=== PATIENT | female | born 1965 | race African-American/Black ===

== ENCOUNTER → 2017-03-02 | Outpatient (CLI) | payer OTHER ==
[~2017-03-02] MED LIST: CYCLOBENZAPRINE5 MG PO; GLYBURIDE 2.52.5 M1 PO; IBUPROFEN 600600 M1 PO; METFORMIN HCL500 MG PO; NORCO 5-325 TA1 EACH PO; ZOCOR 10 MG TAB10 MG PO; [UNRECOGNIZED DRUG - REMARK]
== END ==
LOC: CAT 15:19
DX: R91.1 Solitary pulmonary nodule (principal)

== ENCOUNTER 2018-01-19 11:03 | Emergency (ER) | payer OTHER ==
[~2018-01-19] VITALS: Ht 170.2 cm; Wt 56.7 kg
[2018-01-19] MEDS ORDERED: IBUPROFEN 600600 M1 PO (11:42)
[2018-01-19] MEDS ORDERED: TESSALON PERLE100 MG PO (11:42)
== END 2018-01-19 11:57 | disposition home or self-care (01) ==
LOC: ER 11:03
DX: J06.9 Acute upper respiratory infection, unspecified (principal); E11.9 Type 2 diabetes mellitus without complications; Z88.2 Allergy status to sulfonamides

== ENCOUNTER → 2018-08-27 | Outpatient (CLI) | payer OTHER, SELFPAY ==
[~2018-08-27] MED LIST changes: +TESSALON PERLE100 MG PO
== END ==
LOC: RAD 16:28
DX: M48.56XA Collapsed vertebra, not elsewhere classified, lumbar region, initial encounter for fracture (principal); M54.42 Lumbago with sciatica, left side

== ENCOUNTER → 2018-08-28 | Outpatient (CLI) | payer OTHER, SELFPAY | LOC: RAD 14:16 | DX: Z12.31 Encounter for screening mammogram for malignant neoplasm of breast (principal) ==

== ENCOUNTER → 2019-01-10 | Outpatient (CLI) | payer OTHER ==
[~2019-01-10] MED LIST changes: +CENTRUM SILVER1 EAC4 PO
== END ==
LOC: RAD 13:36
DX: M79.641 Pain in right hand (principal); M79.642 Pain in left hand

== ENCOUNTER → 2019-01-24 | Outpatient (CLI) | payer OTHER ==
[~2019-01-24] VITALS: Ht 170.2 cm; Wt 94.8 kg
[~2019-01-24] MED LIST changes: +HYDROXYCHLOROQ200 M1 PO; +ISOSORBIDE MONO30 M1 PO; +NAPROSYN500 MG PO
[2019-01-24 11:12] LABS: HEMATOCRIT 42.4 % (37.0-47.0); HEMOGLOBIN 13.3 gm/dL (12.0-15.0); MCH 23.6 pg (26.0-34.0); MCHC 31.4 g/dL (28.0-37.0); MCV 75.2 fL (80.0-100.0); RBC 5.64 mil/uL (4.20-5.00); RDW 14.7 % (10.5-14.5); WBC 6.6 thou/uL (4.0-11.0)
[2019-01-24 11:16] VITALS: BP 122/64
[2019-01-24 11:22] LABS: CALCIUM 9.6 mg/dL (8.5-10.1); CREATININE 0.8 mg/dL (0.6-1.0); POTASSIUM 3.7 mmol/L (3.5-5.1)
--- NOTE | 2019-02-04 11:19 | CATHLAB ---
[facility] [address] [place] [address] INVASIVE PROCEDURE REPORT Name: EDU CARRENO Room #: REG [facility]#: [id number] ������������� Admission: 01/24/19 ������������� Attend Phys: Behzad Bateman Discharge: ��� ������������� ��� Date of : 69 Date of Service: 02/04/19 1118 �� Report #: [id number] �������� ��������������������������������������������[id number] THIS REPORT FOR: //name// APPROVED REPORT Study performed: 01/24/2019 12:08:56 Patient Details Patient Status: Out-Patient Room #: The patient is a 53 year-old female Event Personnel Behzad Atkinson Manager Of Health, Oswaldo Washington RN RN, Humza Camops RN RN, Neida Rush RTR, Terry Copeland Amber Monitor Procedures Performed Art Access - R femoral artery* 90030 Initial Mod Sed Same Phys/QHP Gr5y 548700 Left Heart Cath w/or w/o Coronaries [id number] [facility] Hemostasis with Manual pressure, supervision of conscious sedation Indication Positive stress test, Chest pain Procedure Narrative The patient was brought electively to the Cardiac Catheterization Laboratory and was prepped and draped in a sterile manner. The Right Groin^ was infiltrated with 1% Lidocaine subcutaneous anesthesia. A PINNACLE 4FR Sheath #[id number] sheath was inserted into the RFA^. Coronary angiography was performed using coronary diagnostic catheters. The right coronary system was accessed and visualized with a JR 4 catheter. The left coronary system was accessed and visualized with a JL 4 catheter. The left ventricle was accessed and visualized with a JR 4 catheter. Left ventricular/Aortic Valve gradient assessed via catheter pullback. Hemostasis was obtained with manual pressure following sheath removal without any complications. The patient tolerated the procedure well and there were no complications associated with the procedure. There was no hematoma. Intraoperative Conscious Sedation Sedation start time: 12:29 Case end Time: 12:54 Versed 3 mg [facility] [place] [address] INVASIVE PROCEDURE REPORT Name: EDU CARRENO Room #: REG [facility]#: [id number] ������������� Admission: 01/24/19 ������������� Attend Phys: Behzad Bateman Discharge: ��� ������������� ��� Date of : 69 Date of Service: 02/04/19 1118 �� Report #: [id number] �������� ��������������������������������������������[id number] Fluoro Time: 1.35 minutes Dose: DAP 2223.00 cGycm2 325 mGy Contrast Type and Amount: Omnipaque 50 ml Coronary Angiography The patient's coronary anatomy is right dominant. Diagnostic Cath Left Main Large-caliber vessel bifurcating left anterior descending left circumflex free of high-grade disease LAD Moderate to small caliber rapidly tapering vessel. Type II. Coursing the anterior interventricular sulcus giving rise to septal and diagonal branches which are small in size but all free of high-grade disease. Diagonal 1 More caliber nonobstructed vessel Circumflex Moderate caliber vessel which proceeds give rise to a moderate caliber bifurcating marginal branch along the lateral aspect of the heart. Then continues and terminates as a small posterior wall branches with only luminal irregularities OM1 Moderate caliber vessel without significant high-grade lesions or luminal irregularities noted Right Coronary Moderate caliber vessel normal origin. Coursing the AV groove giving rise to 2 marginal branches all of which are free of high-grade disease. And continues posterior to the crux of the heart will race small caliber posterior descending and posterior circulation arises. R PDA small caliber vessel with significant stenosis present Left Ventriculography Left Ventriculography was not performed. Hemodynamics The aortic pressure is 148/85 mmHg with a mean of 70 mmHg. The left ventricular pressure is 142/6 mmHg with a mean of mmHg. The left ventricular end diastolic pressure is 24 mmHg. Conclusion 1. Essentially normal coronary arteries 2. Normal hemodynamics Recommendations Cardiac Risk Reduction Program ��������������������������������������������� <ELECTRONICALLY SIGNED> ���������������������������������������� By: Behzad Atkinson MD ��������������������������������������������� 02/04/19 1118 1118 1118 Behzad Atkinson MD /INF
== END | disposition home or self-care (01) ==
LOC: CATH 06:24
PROVIDERS: Internal Medicine
DX: R94.39 Abnormal result of other cardiovascular function study (principal); R07.9 Chest pain, unspecified; E11.9 Type 2 diabetes mellitus without complications; E78.5 Hyperlipidemia, unspecified; Z90.49 Acquired absence of other specified parts of digestive tract; Z98.890 Other specified postprocedural states; Z88.2 Allergy status to sulfonamides; Z79.899 Other long term (current) drug therapy

== ENCOUNTER → 2019-09-02 | Outpatient (CLI) | payer OTHER | LOC: RAD 09:29 | DX: Z12.31 Encounter for screening mammogram for malignant neoplasm of breast (principal) ==

== ENCOUNTER → 2019-09-23 | Outpatient (CLI) | payer OTHER ==
[~2019-09-23] VITALS: Ht 170.2 cm; Wt 98.4 kg
[~2019-09-23] MED LIST changes: +JANUVIA100 MG PO
--- NOTE | 2019-09-24 16:06 | PATH ---
[facility] [address] [place] [address] PATHOLOGY RPT PROCEDURE Name: EMELI CARRENO Room #: REG [facility]..#: [id number] Admission: 09/23/19 Date of : 69 Discharge: Report #: [id number] Path Case #: [id number] [facility] Accession Number: [id number] . 01 Material submitted: . colon - POLYP AT TRANSVERSE COLON. Modifiers: transverse . 01 Clinical history: . Pre-OP DX: Screening Post-OP DX: Colon polyps . 02 Diagnosis: Polyp, at transverse colon, endoscopic biopsy: - Tubular adenoma. - Negative for high-grade dysplasia. (IUV:problem manager; 09/24/2019) MBR 09/24/2019 1212 Local . 02 Electronically signed: . Brittani Pete MD, Pathologist NPI- [id number] . 01 Gross description: . Received in formalin labeled "Chambers, Emeli, polyp at transverse colon," is a single segment of nobles soft tissue measuring 0.5 cm in maximum dimension. The specimen is entirely submitted in cassette A1. (TSD; 09/23/2019) TOB/TOB 09/23/2019 2303 Local . 02 Pathologist provided ICD-10: D12.3, Z12.11 . 02 CPT . 344954 Specimen Comment: A courtesy copy of this report has been sent to [phone] Specimen Comment: [phone] Specimen Comment: Report sent to and Performed at: [address], [place], [place] [id number] MD Jayden Lamb MD Phone: [phone] Performed at: [address] [id number] MD Brittani Pete MD Phone: [phone]
== END | disposition home or self-care (01) ==
LOC: GI 06:56
DX: Z12.11 Encounter for screening for malignant neoplasm of colon (principal); D12.3 Benign neoplasm of transverse colon; K64.8 Other hemorrhoids; E78.5 Hyperlipidemia, unspecified; E11.9 Type 2 diabetes mellitus without complications; Z98.890 Other specified postprocedural states; Z79.899 Other long term (current) drug therapy; Z90.49 Acquired absence of other specified parts of digestive tract; Z88.2 Allergy status to sulfonamides
CPT/HCPCS: 62110; 62900

== ENCOUNTER → 2019-09-26 | Outpatient (CLI) | payer OTHER | LOC: CAT 09:26 | DX: J98.4 Other disorders of lung (principal); N28.1 Cyst of kidney, acquired ==

== ENCOUNTER → 2020-06-09 | Outpatient (CLI) | payer OTHER ==
[2020-06-09 14:05] LABS: ABSOLUTE NEUTROPHILS 4.5 thou/uL (1.4-8.2); BASOPHILS 0.9 % (0.0-2.0); HEMATOCRIT 43.9 % (37.0-47.0); HEMOGLOBIN 13.8 gm/dL (12.0-15.0); LYMPHOCYTES 39.9 % (24.0-44.0); MCH 23.8 pg (26.0-34.0); MCHC 31.4 g/dL (28.0-37.0); MCV 75.6 fL (80.0-100.0); MONOCYTES 4.2 % (1.0-8.0); PLATELET COUNT 323 thou/uL (150-400); RBC 5.81 mil/uL (4.20-5.00); RDW 14.9 % (10.5-14.5); WBC 8.6 thou/uL (4.0-11.0)
[2020-06-09 14:23] LABS: ALBUMIN 3.6 g/dL (3.4-5.0); ANION GAP 6 mmol/L (7-16); BUN 12 mg/dL (7-18); CALCIUM 9.6 mg/dL (8.5-10.1); CHLORIDE 101 mmol/L (98-107); CHOLESTEROL 279 mg/dL (<200); CO2 29 mmol/L (21-32); GLUCOSE 280 mg/dL (74-106); HDL CHOLESTEROL 45 mg/dL (>40); LDL CHOLESTEROL 194 mg/dL (<100); POTASSIUM 4.3 mmol/L (3.5-5.1); SGOT 14 U/L (15-37); SGPT 28 U/L (30-65); SODIUM 136 mmol/L (136-145); TC:HDL 6.2 Ratio (Not establshd); TOTAL BILIRUBIN 0.3 mg/dL (0.2-1.0); TOTAL PROTEIN 7.6 g/dL (6.4-8.2); TRIGLYCERIDE 200 mg/dL (<150); VLDL 40 mg/dL (<40)
[2020-06-10 06:06] LABS: GLYCOHEMOGLOBIN (HGB A1C) 10.1 % (4.8-5.6)
== END ==
LOC: LAB 13:45
PROVIDERS: ATTEND Nurse Practitioner
DX: E11.9 Type 2 diabetes mellitus without complications (principal); E78.00 Pure hypercholesterolemia, unspecified

== ENCOUNTER → 2020-06-22 | Outpatient (CLI) | payer OTHER | LOC: CAT 09:41 | PROVIDERS: ATTEND Nurse Practitioner | DX: K80.20 Calculus of gallbladder without cholecystitis without obstruction (principal) ==

== ENCOUNTER 2020-08-22 12:03 | Emergency (ER) | payer OTHER ==
[~2020-08-22] VITALS: Ht 170.2 cm; Wt 102.1 kg
[2020-08-22 13:07] LABS: ABSOLUTE NEUTROPHILS 6.8 thou/uL (1.4-8.2); BASOPHILS 0.5 % (0.0-2.0); EOSINOPHILS 1.2 % (0.0-3.0); HEMATOCRIT 42.9 % (37.0-47.0); HEMOGLOBIN 13.8 gm/dL (12.0-15.0); LYMPHOCYTES 18.1 % (24.0-44.0); MCH 24.2 pg (26.0-34.0); MCHC 32.1 g/dL (28.0-37.0); MCV 75.3 fL (80.0-100.0); MONOCYTES 4.1 % (1.0-8.0); PLATELET COUNT 292 thou/uL (150-400); POLYS 76.1 % (36.0-66.0); RBC 5.69 mil/uL (4.20-5.00); RDW 14.5 % (10.5-14.5); WBC 8.9 thou/uL (4.0-11.0)
[2020-08-22 13:16] LABS: ANION GAP 10 mmol/L (7-16); BUN 12 mg/dL (7-18); CALCIUM 9.1 mg/dL (8.5-10.1); CHLORIDE 102 mmol/L (98-107); CO2 27 mmol/L (21-32); GLUCOSE 288 mg/dL (74-106); POTASSIUM 4.2 mmol/L (3.5-5.1); SODIUM 139 mmol/L (136-145)
[2020-08-22 13:26] LABS: ALBUMIN 3.8 g/dL (3.4-5.0); SGOT 20 U/L (15-37); SGPT 22 U/L (30-65); TOTAL BILIRUBIN 0.4 mg/dL (0.2-1.0); TOTAL PROTEIN 8.2 g/dL (6.4-8.2); TROPONIN-I <0.06 ng/mL (<0.06)
[2020-08-22 15:10] LABS: URINE BILIRUBIN NEGATIVE (Negative); URINE BLOOD NEGATIVE (Negative); URINE CLARITY CLEAR; URINE COLOR YELLOW; URINE GLUCOSE-RANDOM* 3+ (Negative); URINE KETONES NEGATIVE (Negative); URINE LEUKOCYTES-REFLEX NEGATIVE (Negative); URINE NITRITE-REFLEX NEGATIVE (Negative); URINE PROTEIN (DIPSTICK) NEGATIVE (Negative); URINE UROBILINOGEN 0.2 E.U./dl (0.2-1.0)
[2020-08-22] MEDS ORDERED: ZOFRAN ODT4 MG DISSOLVE (15:53)
[2020-08-22] MEDS ORDERED: MECLIZINE HCL25 M1 PO (15:53)
[2020-08-22 16:24] VITALS: BP 114/74
--- NOTE | 2020-08-23 09:08 | EKG ---
[facility] [place] [address] ELECTROCARDIOGRAM REPORT Name: [facility] Room #: [facility] MAlec#: [id number] Admission: 08/22/20 Attend Phys: Discharge: 08/22/20 Date of : 69 Report #: [id number] THIS REPORT FOR: cc: Sri Valenzuela DNP, Mary E. DNP Santiago, Patrick MD [facility] ~ THIS REPORT FOR: //name// [facility] ED Test Date: 2020-08-22 Test Time: 13:20:32 Pat Name: EDU CARRENO Department: Room: Gender: F [employer] Project Manager: AM : 1965 Requested By: Alejandra Lai Order Number: [id number] MD: Dima Munoz Measurements Intervals [place] Rate: 83 P: 57 TN: 180 QRS: 44 QRSD: 84 T: 23 QT: 375 QTc: 441 Interpretive Statements Sinus rhythm Probable left atrial enlargement Minimal ST elevation, anterior leads No previous ECG available for comparison Electronically Signed On 08-23-2020 9:07:46 [employer]K ASSEMBLER by Dima Munoz [email or web address] <ELECTRONICALLY SIGNED> By: Dima Munoz MD, FACC 08/23/20 0907 132 Dima Munoz MD, FAC /EPI
== END 2020-08-22 16:26 | disposition home or self-care (01) ==
LOC: ER 12:03
PROVIDERS: Physician Assistant
DX: R42 Dizziness and giddiness (principal); R11.0 Nausea; E11.9 Type 2 diabetes mellitus without complications; E78.5 Hyperlipidemia, unspecified; Z90.49 Acquired absence of other specified parts of digestive tract; Z79.899 Other long term (current) drug therapy; Z88.2 Allergy status to sulfonamides

== ENCOUNTER → 2020-09-17 | Outpatient (CLI) | payer OTHER ==
[~2020-09-17] MED LIST changes: +MECLIZINE HCL25 M1 PO; +ZOFRAN ODT4 MG DISSOLVE
== END ==
LOC: BC 10:52
PROVIDERS: ATTEND Nurse Practitioner
DX: Z12.39 Encounter for other screening for malignant neoplasm of breast (principal); N63.10 Unspecified lump in the right breast, unspecified quadrant; R92.2 Inconclusive mammogram

== ENCOUNTER → 2020-09-28 | Outpatient (CLI) | payer OTHER | LOC: ULTRA 09:36 | PROVIDERS: ATTEND Nurse Practitioner | DX: N63.10 Unspecified lump in the right breast, unspecified quadrant (principal); N64.89 Other specified disorders of breast ==

== ENCOUNTER → 2020-12-11 | Outpatient (CLI) | payer OTHER ==
[2020-12-11 12:46] LABS: ABSOLUTE NEUTROPHILS 3.4 thou/uL (1.4-8.2); BASOPHILS 0.8 % (0.0-2.0); EOSINOPHILS 2.6 % (0.0-3.0); LYMPHOCYTES 44.9 % (24.0-44.0); MCHC 31.2 g/dL (28.0-37.0); MCV 76.8 fL (80.0-100.0); PLATELET COUNT 309 thou/uL (150-400); POLYS 48.7 % (36.0-66.0); RBC 5.86 mil/uL (4.20-5.00)
[2020-12-11 13:04] LABS: ALBUMIN 3.7 g/dL (3.4-5.0); ANION GAP 5 mmol/L (7-16); BUN 12 mg/dL (7-18); CALCIUM 9.3 mg/dL (8.5-10.1); CHLORIDE 101 mmol/L (98-107); CHOLESTEROL 273 mg/dL (<200); CO2 31 mmol/L (21-32); GLUCOSE 275 mg/dL (74-106); HDL CHOLESTEROL 46 mg/dL (>40); LDL CHOLESTEROL 195 mg/dL (<100); POTASSIUM 3.9 mmol/L (3.5-5.1); SGOT 17 U/L (15-37); SGPT 24 U/L (30-65); SODIUM 137 mmol/L (136-145); TC:HDL 5.9 Ratio (Not establshd); TOTAL BILIRUBIN 0.4 mg/dL (0.2-1.0); TRIGLYCERIDE 162 mg/dL (<150); VLDL 32 mg/dL (<40)
== END ==
LOC: LAB 12:00
PROVIDERS: ATTEND Nurse Practitioner
DX: Z01.419 Encounter for gynecological examination (general) (routine) without abnormal findings (principal); E11.00 Type 2 diabetes mellitus with hyperosmolarity without nonketotic hyperglycemic-hyperosmolar coma (NKHHC)

== ENCOUNTER → 2021-05-03 | Outpatient (CLI) | payer OTHER | LOC: BC 08:50 | PROVIDERS: ATTEND Nurse Practitioner | DX: R92.8 Other abnormal and inconclusive findings on diagnostic imaging of breast (principal) ==

== ENCOUNTER → 2021-11-18 | Outpatient (CLI) | payer OTHER | LOC: BC 08:41 | PROVIDERS: ATTEND Family Medicine | DX: Z12.31 Encounter for screening mammogram for malignant neoplasm of breast (principal) ==